=== PATIENT | female | born 1945 ===

== ENCOUNTER 2024-10-31 21:29 | Outpatient (REF) | payer SELFPAY ==
[2024-10-31 22:45] LABS: Albumin Level 3.1 g/dL (3.4-5.0); Total Protein 7.1 g/dL (6.4-8.2)
== END 2024-10-31 21:30 | disposition home or self-care (01) ==
LOC: LAB 21:29
PROVIDERS: Visit Provider Nurse Practitioner Adult Health
DX: L89.899 Pressure ulcer of other site, unspecified stage (principal)
CPT/HCPCS: 36415; 82042; 84155